=== PATIENT | female | born 1960 | race Two or more races ===

== ENCOUNTER 2022-03-20 08:56 | Emergency (ER) | payer MEDICAID ==
[~2022-03-20] VITALS: Ht 165.1 cm; Wt 47.0 kg
[2022-03-20] MEDS ORDERED: IPRATROPIUM BROMIDE (0.02%) 0.5MG/2.5ML NEB HHN STA (09:12)
[2022-03-20] MEDS ORDERED: METHYLPREDNISOLONE SOD SUCC 125 MG/2 ML VIAL IV STA (09:12)
[2022-03-20] MEDS ORDERED: SODIUM CHLORIDE 0.9% 1000ML BAG (SEPSIS BOLUS) IV ONE (09:15)
[2022-03-20] MEDS ORDERED: ALBUTEROL (0.083%) 2.5MG/3ML NEB HHN SCH (09:30)
[2022-03-20 09:56] LABS: BG FRACTION INSPIRED OXYGEN 60; BG HCO3 ACT 16.1 mmol/L (22.0-26.0); BG PCO2 20.5 mmHg (35.0-45.0); BG PH 7.512 (7.350-7.450); BG PO2 76.2 mmHg (75.0-100.0); BG SAMPLE SITE RIGHT RADIAL; BG TOTAL HEMOGLOBIN < 4.5 g/dL (12.0-18.0); BG VENT MODE MASK - SIMPLE
[2022-03-20 10:01] LABS: BASOPHILS % 0.3 % (0.0-2.0); EOSINOPHILS % 0.5 % (0.0-5.0); LYMPHOCYTES % 35.7 % (20.0-50.0); MEAN CORPUSCULAR HEMOGLOBIN 30.6 pg (28.0-32.0); MEAN CORPUSCULAR VOLUME 93.6 fL (81.0-99.0); MEAN PLATELET VOLUME 10.3 fl (7.4-10.4); MONOCYTES % 1.3 % (2.0-8.0); NEUTROPHILS % 62.2 % (40.0-76.0); PLATELET 83 x1000/uL (130-400); RED BLOOD CELL COUNT 1.66 mill/uL (4.2-5.4); RED CELL DISTRIBUTION WIDTH 21.1 % (11.6-14.6)
[2022-03-20 10:10] LABS: CHLORIDE 101 mEq/L (98-107); INR 1.3; PARTIAL THROMBOPLASTIN TIME 25.3 sec (23.4-31.0); PROTHROMBIN TIME 14.1 sec (9.6-11.0)
[2022-03-20 10:15] LABS: HEMATOCRIT. 15.5 % (36.0-48.0); HEMOGLOBIN. 5.1 g/dL (12.0-16.0)
[2022-03-20] MEDS ORDERED: PIPERACILLIN/TAZ 3.375G PREMIX 50 ML IV ONE (10:15)
[2022-03-20] MEDS ORDERED: PANTOPRAZOLE 80 MG in SODIUM CHLORIDE 0.9% 100 ML IV STA (10:46)
[2022-03-20] MEDS ORDERED: PANTOPRAZOLE SODIUM 40 MG/VIAL IV STA (10:46)
[2022-03-20] MEDS ORDERED: ONDANSETRON HCL 4MG/2ML INJ IV PRN (13:00)
[2022-03-20] MEDS ORDERED: PHENYLEPHRINE 50 MG in DEXT 5% WATER 245 ML IV PRN ×2 (13:00→13:30)
[2022-03-20 13:20] VITALS: BP 76/42
[2022-03-20 13:22] LABS: HEPATITIS B SURFACE ANTIGEN NEGATIVE
[2022-03-20 13:25] LABS: TOTAL IRON BINDING CAPACITY 169 ug/dL (250-450)
[2022-03-20] MEDS ORDERED: NOREPINEPHRINE 8MG/250ML PMX 250 ML IV ONE (13:33)
[2022-03-20] MEDS ORDERED: EPINEPHRINE 10 MG in SODIUM CHLORIDE 0.9% 240 ML IV PRN ×2 (13:45→14:00)
[2022-03-20] MEDS ORDERED: CEFEPIME 1,000 MG in DEXTROSE 5% WATER 50 ML IV SCH (14:00)
[2022-03-20] MEDS ORDERED: METRONIDAZOLE 500 MG PREMIX 100 ML IV SCH (14:00)
== END 2022-03-20 16:54 ==
LOC: ER 08:59 → EDBEDREQ 11:41 → CANBEDREQ 14:16 → ER 16:54
DX: R06.03 Acute respiratory distress (principal); D64.9 Anemia, unspecified; J44.9 Chronic obstructive pulmonary disease, unspecified
CPT/HCPCS: 31500; 36415; 36600; 71045; 80053; 82375; 82728; 82805; 82962; 83540; 83550; 83605; 83880; 84484; 85025; 85044; 85610; 85730; 86705; 86709; 86803; 86850; 86900; 86901; 86920; 87040; 87340; 93005; 94640; 96365; 96367; 96375; 99291; C9113; J0692; J2370; J2543; J2930; J3490; J7030; J7050; J7060; Z7610; 82607; 82746; P9016